=== PATIENT | male | born 1980 | race Caucasian/White ===

== ENCOUNTER 2019-09-02 12:12 | Emergency (ER) | payer MEDICAID, SELFPAY ==
[2019-09-02 12:13] VITALS: BP 155/35; PULSE 93; RESP 24; TEMP 36.8; O2SAT 99; BMI 26.4
--- NOTE | 2019-09-02 12:25 | [facility].EDGENADL ---
ED Disposition Clinical Impression: Chest wall pain Disposition: Home, Self-Care Condition on Discharge: Good Instructions: DI for Atypical Chest Pain Additional Instructions: Ibuprofen as prescribed. Follow-up with primary care provider. Additional instructions for CHEST PAIN: See your physician as soon as possible for further evaluation. Return immediately if worsening chest pain, vomiting, shortness of breath, fever, coughing of blood. Prescriptions: Ibuprofen [Ibuprofen 800mg Tab] 800 mg PO Q8HP PRN #15 tab PRN Reason: Moderate Pain Prescription Printed Referrals: Provider,Referral, [Primary Care Provider] - - Critical Care Critical Care Time: No Attestation: On 09/02/19, the high probability of a clinically significant, sudden or life threatening deterioration of the following system(s) required my full and direct attention, intervention and personal management. The time I documented below is in addition to time spent performing reported procedures but includes the following listed in this critical care notation. Medical Decision Making - Medical Records Medical records reviewed: Yes: I reviewed the patient's medical records. - [place] Inquiry Pt receiving controlled substance: No Vital Signs: 09/02/19 12:13 09/02/19 14:27 Temperature 98.2 F 98.1 F Temperature Source Oral Oral Pulse Rate 80 Pulse Rate [Right] 93 H Respiratory Rate 24 16 Blood Pressure 130/70 Blood Pressure [Right Arm] 155/35 H Blood Pressure Mean [Right Arm] 75 Blood Pressure Source Automatic Cuff Blood Pressure Position Sitting 02 Sat by Pulse Oximetry 99 Oxygen Delivery Method Room Air Room Air - Lab Data Lab results reviewed: Yes: I reviewed the patient's lab results. Lab Results 09/02/19 12:25: WBC 16.0 H, RBC 5.75, Hgb 16.3, Hct 51.2, MCV 89.0, MCH 28.4, MCHC 31.9, RDW 14.7, Plt Count 329, MPV 8.0, Neut % (Auto) 73.7, Lymph % (Auto) 14.5, Darke % (Auto) 5.1, Eos % (Auto) 5.5, Baso % (Auto) 1.2, Neut # (Auto) 11.8 H, Lymph # (Auto) 2.3, Darke # (Auto) 0.8, Eos # (Auto) 0.9 H, Baso # (Auto) 0.2, Total Counted 100, Neutrophils % (Manual) 77 H, Lymphocytes % (Manual) 14, Monocytes % (Manual) 4, Eosinophils % (Manual) 5 H, Platelet Estimate Normal, RBC Morphology Normal 09/02/19 12:25: Sodium 135 L, Potassium 4.3, Chloride 102, Carbon Dioxide 26, Anion Gap 11.3, BUN 9, Creatinine 0.70, Estimated Creat Clear 180, Estimated GFR 125, Est GFR ( Amer) 151, Glucose 122 H, Calcium 9.2, Total Bilirubin 1.3, AST 21, ALT 21, Alkaline Phosphatase 97, Total Protein 8.7 H, Albumin 4.4, Globulin 4.3 H, Albumin/Globulin Ratio 1.0 L 09/02/19 12:25: D-Dimer < 100 09/02/19 12:25: Troponin I < 0.01 09/02/19 13:37: Lactate 0.8 09/02/19 14:04: Urine Opiates Screen Negative, Urine Methadone Screen Negative, Ur Barbituates Screen Negative, Ur Phencyclidine Scrn Negative, Ur Amphetamines Screen Negative, U Benzodiazepines Scrn Negative, Urine Cocaine Screen Negative, U Marijuana (THC) Screen Positive H Result diagrams: 09/02/19 12:25 09/02/19 12:25 Orders (Tests/Meds): ED MEDICATIONS Discontinued Medications Generic Name Dose Route Start Last Admin Trade Name Maira PRN Reason Stop Dose Admin Ketorolac Tromethamine 30 mg 09/02/19 12:27 09/02/19 12:37 Toradol 30mg/Ml Vial IV 09/02/19 12:28 30 mg ONCE ONE Administration ORDERS Category Date Time Status Blood Culture Stat Micro 09/02/19 13:37 Received - Radiology Data #1 Image(s): Chest Image Reviewed: Yes I reviewed the patient's radiology image, Yes I have reviewed radiologist's interpretation PROCEDURE: XR CHEST 2V CLINICAL HISTORY: SOA Previous surgery right lung 1/2 years ago for carcinoma, no follow-up radiotherapy or chemotherapy COMPARISON: No exams were available for comparison FINDINGS: The cardiomediastinal silhouette and pulmonary vascularity are within normal limits. The lungs are clear without infiltrates
--- NOTE | 2019-09-02 12:27 | XR_ITS ---
PROCEDURE: XR CHEST 2V CLINICAL HISTORY: SOA Previous surgery right lung 1/2 years ago for carcinoma, no follow-up radiotherapy or chemotherapy COMPARISON: No exams were available for comparison FINDINGS: The cardiomediastinal silhouette and pulmonary vascularity are within normal limits. The lungs are clear without infiltrates, suspicious nodules, or pleural effusions. There is no pneumothorax. There is minimal blunting of the right costophrenic angle probably postsurgical in etiology. No acute bony abnormalities. There are no definite lytic or blastic lesions involving the bony thorax. IMPRESSION: No acute findings. Minimal probably postsurgical change right costophrenic angle Dictated by: Dr. Luis Park MD 09/02/2019 12:[address] Luis Park MD in [place] 09/02/2019 12:57
[2019-09-02 12:42] LABS: Basophils # 0.2 K/mm3 (0-0.2); Basophils % 1.2 % (0.1-2.0); Eosinophils # 0.9 K/mm3 (0.0-0.4); Eosinophils % 5.5 % (0.1-12.0); Hematocrit 51.2 % (42.0-52.0); Hemoglobin 16.3 g/dL (14.1-18.0); Lymphocytes # 2.3 K/mm3 (0.7-4.5); Lymphocytes % 14.5 % (10-50); Mean Corpuscular HGB Conc 31.9 g/dL (31.8-35.4); Mean Corpuscular Hemoglobin 28.4 pg (27.0-31.2); Monocytes # 0.8 K/mm3 (0.1-1.0); Monocytes % 5.1 % (1.7-9.3); Neutrophils # 11.8 K/mm3 (1.8-7.8); Neutrophils % 73.7 % (37.0-80.0); Platelet Count 329 K/mm3 (142-424); Red Blood Count 5.75 M/mm3 (4.60-6.20); Red Cell Distribution Width 14.7 % (11.5-17.5)
[2019-09-02 12:46] LABS: Chloride 102 mmol/L (98-107); Potassium 4.3 mmoL/L (3.5-5.1); Sodium 135 mmol/L (136-145)
[2019-09-02 12:47] LABS: MANUAL DIFFERENTIAL MANUAL DIFFERENTIAL (MANUAL DIFF)
[2019-09-02 12:48] LABS: Blood Urea Nitrogen 9 mg/dl (9-20); Creatinine Clearance Estimated 180 mL/min (50-200); Estimated Glomerular Filt Rate 125 ml/min (>60); GFR (African American) 151 ML/MIN (>60)
[2019-09-02 12:49] LABS: Alanine Aminotransferase 21 U/L (12-78); Albumin Level 4.4 g/dl (3.5-5.0); Alkaline Phosphatase 97 U/L (38-126); Anion Gap 11.3 mEq/L (5-15); Aspartate Amino Transferase 21 U/L (17-59); Bilirubin,Total 1.3 mg/dl (0.2-1.3); Calcium 9.2 mg/dl (8.4-10.2); Carbon Dioxide 26 mmol/L (22.0-30.0); Globulin 4.3 g/dL (1.3-3.2); Glucose 122 mg/dl (74-100); Total Protein,Serum 8.7 g/dl (6.3-8.2)
[2019-09-02 12:59] LABS: Eosinophils % 5 % (0-3); Lymphocytes % 14 % (10-50); Monocytes % 4 % (2-9); Neutrophils % 77 % (42-76); Platelet Estimate Normal; RBC Morphology Normal; Total Cells Counted 100
--- NOTE | 2019-09-02 13:12 | ECG_ITS ---
APPROVED REPORT Exam: Resting ECG HR:71 bpm ECG Measurements Heart Rate 71 AXES WY 144 P 42 QRSd 102 QRS -10 QT 402 T 53 QTc 436 <Conclusion> Normal sinus rhythm Normal ECG Electronically signed by : Sunil Chavez, 09/03/2019 08:27:03
[2019-09-02 14:01] LABS: Troponin I < 0.01 ng/ml (0.00-0.034)
[2019-09-02 14:05] LABS: Lactic Acid 0.8 mmol/L (0.7-2.1)
[2019-09-02 14:14] LABS: D-Dimer < 100 ng/mL (0-400)
[2019-09-02 14:22] LABS: Amphetamine/Metha Screen,Urine Negative ng/ml (<1000)
[2019-09-02 14:23] LABS: Barbiturates Screen,Urine Negative ng/ml (<200); Benzodiazepines Screen,Urine Negative ng/ml (<200)
[2019-09-02 14:24] LABS: Cannabinoid Screen,Urine Positive ng/ml (<50)
[2019-09-02 14:25] LABS: Cocaine Screen,Urine Negative ng/ml (<300); Methadone Screen,Urine Negative ng/ml (<300)
[2019-09-02 14:26] LABS: Opiate Screen,Urine Negative ng/ml (<300)
[2019-09-02 14:27] VITALS: BP 130/70; PULSE 80; RESP 16; TEMP 36.7; O2SAT 98
[2019-09-02 14:27] LABS: Phencyclidine Screen,Urine Negative ng/ml (<25)
== END 2019-09-02 14:28 | disposition home or self-care (01) ==
PROVIDERS: Emergency Provider Emergency Medicine
DX: R07.89 Other chest pain (principal); F17.210 Nicotine dependence, cigarettes, uncomplicated
CPT/HCPCS: 71046; 80053; 80305; 83605; 84484; 85007; 85025; 85378; 87040; 87077; 87186; 93005; 96374; 99284

== ENCOUNTER 2022-06-14 09:07 | Emergency (ER) | payer MEDICAID, SELFPAY ==
[2022-06-14 09:17] VITALS: BP 164/95; PULSE 128; RESP 18; TEMP 37.1; O2SAT 94; BMI 32.0
[2022-06-14 09:30] VITALS: BP 138/101; PULSE 73; O2SAT 93
--- NOTE | 2022-06-14 09:50 | PC.NURSE ---
er at bedside
--- NOTE | 2022-06-14 09:56 | [facility].EDGENADL ---
Discharge Plan Disposition Patient Disposition: Left Against Medical Advice Condition: Good Chief Complaint: Upper Respiratory Infection Prescriptions Prescriptions: No Action tramadol 50 mg tablet 50 mg PO BID PRN (Reason: pain) Qty: 60 1RF ibuprofen 800 MG tablet 800 mg PO Q8HP PRN (Reason: Moderate Pain) Qty: 15 0RF Activity Restrictions/Add. Instructions Additional Instructions/Restrictions: You are choosing to sign out AGAINST MEDICAL ADVICE without any evaluation or treatment. I recommend that she follow-up with a primary care provider. You are being provided with a list of physicians available for follow-up of your condition. Please call a physician on this list to arrange a follow-up appointment as soon as possible. Return to the emergency department if any symptoms of concern such as chest pain, difficulty breathing, vomiting, fever. Clinical Impressions Clinical Impression: Mental status change resolved, Alcohol abuse Instructions Patient Instructions: DI for Alcohol Use Disorder Discharge ED Provider: Michele Ruiz General Adult HPI General Chief complaint: Upper Respiratory Infection Stated complaint: overdose Time Seen by Provider: 06/14/22 09:50 Mode of Arrival: EMS Source of Information: Patient Limitations: No Limitations Description of Symptoms (Recalled from ER Triage Doc. by RN): Pt reluctantly presents via EMS for reported I drank a bit and took a bunch of melatonin and they said I wasn't breathing , pt denies narcotic intake, alert and oriented at present History of Present Illness HPI narrative: Patient is brought in by ambulance. He states I drank a bit . Reports that he drank two fifths of alcohol, stopping at about 3 AM. States that he took his a bunch of melatonin this morning. He says that his mother was not able to wake him in therefore called for ambulance. The patient was reportedly not given any Narcan by EMS, but mental status improved spontaneously. He denies any other drug use today and also states he does not habitually use drugs of any sort. He does admit to being a daily heavy drinker. He says he has been through alcohol treatment in the distant past, but does not feel that he needs alcohol treatment now and refuses referral. He states that he has been treated for heart disease in the past but does not currently have a primary care provider and does not take any medications. States that he stopped taking all of his medications years ago. He says that he has gout. He says he needs to be checked for diabetes because he is thirsty all the time, he has not previously been diagnosed with diabetes. He does not think that he was diagnosed with hypertension. He is a smoker. Related Data Previous Rx's Medication Instructions Recorded ibuprofen 800 mg tablet 800 mg PO Q8HP PRN Moderate Pain 09/02/19 #15 tabs tramadol 50 mg tablet 50 mg PO BID PRN pain #60 tabs 10/29/20 Allergies Allergy/AdvReac Type Severity Reaction Status Date / Time diphenhydramine Allergy Intermediate Unverified 10/29/20 14:39 [From BENADRYL] LACTOSE (FOOD) AdvReac Mild NA-NAUSEA Uncoded 10/29/20 14:39 UPSET STOMACH PFSH PFSH Disclaimer: The information contained in this section may have been updated after the patient was seen, as this information can be updated by other users. Social History Smoking Status: Current every day smoker alcohol intake: never current occupational status: unemployed Travel in the last 8 weeks: None ROS Obtained: Yes Systems reviewed as appropriate & no additional complaints except as documented Constitutional Constitutional: Denies fever(s), Denies headache(s) and Denies weakness ENT Ears, Nose, Mouth, and Throat: Denies headache(s), Denies nasal discharge and Denies sore throat Cardiovascular Cardiovascular: Denies chest pain Respiratory Respiratory: Denies shortness of breath and Denies cough Gastrointestinal Gastroin
--- NOTE | 2022-06-14 09:59 | PC.NURSE ---
Team at bedside for finger stick blood glucose measurement result 109
[2022-06-14 10:03] VITALS: BP 134/81; PULSE 114; RESP 18; TEMP 37.1; O2SAT 95
--- NOTE | 2022-06-14 10:03 | PC.NURSE ---
pt states that he does not need any medical care and wants to leave, md aware
[2022-06-14 10:06] LABS: POC Glucose,Bedside 109 (70-110)
== END 2022-06-14 10:05 | disposition left against medical advice (07) ==
PROVIDERS: Emergency Provider Emergency Medicine
DX: F10.10 Alcohol abuse, uncomplicated (principal); R41.82 Altered mental status, unspecified; F17.210 Nicotine dependence, cigarettes, uncomplicated
CPT/HCPCS: 82962; 99283